=== PATIENT | female | born 1985 | race Caucasian/White ===

== ENCOUNTER 2020-03-21 14:58 | Outpatient (RCR) | payer OTHER, SELFPAY ==
--- NOTE | ~2020-03-21 | US_ITS ---
EXAMINATION: US OB limited w BPP DATE: 03/21/2020 16:46 INDICATION: Assess amniotic fluid index during third trimester of . TECHNIQUE: Real-time pelvic ultrasound was performed. The interpreting radiologist was not present fo r the study. COMPARISON: None. FINDINGS: There is a single living fetus in vertex presentation. The placenta is posterior. heart rate i s 161 beats per minute (bpm). Normal amniotic fluid index of 9.4 cm (5th%-95%: 7.1-21.4 cm at 40 week s estimated gestational age) Biophysical profile performed by the technologist: breathing (30 sec sustained breathing in 30 minutes): 2 out of 2 movement (3 gross body movements in 30 minutes): 2 out of 2 tone (one episode of duerxvy-dfxfsrlzo-spxdejb limb movement): 2 out of 2 Amniotic fluid pocket (2 cm): 2 out of 2 Total score: 8 out of 8 IMPRESSION: 1. Single living fetus in vertex presentation with heart rate of 161 bpm. 2. Biophysical profile 8 out of 8. 3. Normal amniotic fluid index of 9.4 cm. Reviewed, dictated and finalized at location B.
[2020-03-21 17:11] VITALS: BP 126/64; PULSE 93
== END 2020-03-28 08:05 | disposition home or self-care (01) ==
LOC: ANHOBOP 14:58
PROVIDERS: Visit Provider Obstetrics & Gynecology
DX: O48.0 Post-term pregnancy (principal); Z3A.40 40 weeks gestation of pregnancy
CPT/HCPCS: 59025; 76815; 76819

== ENCOUNTER 2020-03-22 02:29 | Inpatient (IN) | payer OTHER, SELFPAY ==
[2020-03-22] VITALS (32 sets, daily range): BP systolic 112–164; BP diastolic 49–133; PULSE 62–113; RESP 16–18; TEMP 36.9–37.4; O2SAT 96–100; BMI 40.3
[2020-03-22] MEDS: LACTATED RINGERS 1,000 ML 125 ML IV CONT ×2 (03:03→03:54)
[2020-03-22 03:11] LABS: Basophils Percent Auto 0.1 % (0.2-1.2); Eosinophils Absolute Auto 0.1 K/mm3 (0-0.3); Eosinophils Percent Auto 0.9 % (0-4.4); Hematocrit 35.7 % (37.0-47.0); Hemoglobin 12.3 g/dL (12.0-15.0); Immature Granulocyte Absolute 0.04 K/mm3 (0.00-0.031); Immature Granulocyte Percent A 0.5 % (0-0.5); Lymphocytes Absolute Auto 2.08 K/mm3 (0.9-3.2); Lymphocytes Percent Auto 23.7 % (18.3-44.2); Mean Corpuscular HGB Conc 34.5 g/dl (32-36); Mean Corpuscular Hemoglobin 30.9 pg (26-34); Mean Corpuscular Volume 89.7 fl (80-100); Monocytes Absolute Auto 0.7 K/mm3 (0.1-0.6); Monocytes Percent Auto 7.4 % (2.6-8.5); Neutrophils Absolute Auto 5.9 K/mm3 (1.3-6.7); Neutrophils Percent Auto 67.4 % (45.5-73.1); Platelet Count Result 200 k/mm3 (150-375); Red Blood Count 3.98 M/mm3 (4.2-5.4); Red Cell Distribution Width 13.8 % (11.5-14.5); White Blood Count 8.8 K/mm3 (4.5-10.0)
--- NOTE | 2020-03-22 03:15 | LDADM ---
This patient, Rosalee Valladares, was admitted to Labor/Delivery/Recovery 108 on 03/22/20 at 02:29. Plans for labor, pain management and were discussed with patient. Patient/family oriented to hospital policies and general routines including ID bracelet, bed and alarms, visiting hours, pain management, procedures, bathroom and other care routines, personal items, smoking policy, room service/diet and guest tray routines, security routines, and visiting hours. Patient/Family are encouraged to report perceived risks to care and to ask questions if they do not understand what they are told or what they should do. See OBIX for further documentation.
--- NOTE | 2020-03-22 03:33 | P.PNAN_ITS ---
Anes - Initial Pre Proc Eval Procedure: labor epidural Date/Time: 03/22/20 03:33 Surgeon: Shon Ritchie MD Pre Op Diagnosis: labor pain Pre Op Diagnosis: Contractions Patient Data Age: 35 Gender: F Height: Weight: Last Vital Signs Temp 37.1 C 03/22/20 02:49 Pulse 75 03/22/20 03:31 BP 119/75 03/22/20 03:31 Pulse Ox 99 03/22/20 03:28 Allergies Allergy/AdvReac Type Severity Reaction Status Date / Time No Known Allergies Allergy Verified 02/20/20 12:33 Home Medications Medication Instructions Recorded Confirmed Type PNV cmb#95-ferrous fumarate-FA 1 tablet PO DAILY 02/20/20 03/21/20 History [] famotidine [Pepcid] 20 mg PO HS 02/20/20 03/21/20 History calcium carbonate [Tums] 600 mg PO TID PRN 03/21/20 03/21/20 History Laboratory Tests 03/22/20 03/22/20 03:05 03:05 WBC 8.8 K/mm3 K/mm3 (4.5-10.0) RBC 3.98 M/mm3 L M/mm3 (4.2-5.4) Hgb 12.3 g/dL g/dL (12.0-15.0) Hct 35.7 % L % (37.0-47.0) MCV 89.7 fl fl (80-100) MCH 30.9 pg pg (26-34) MCHC 34.5 g/dl g/dl (32-36) RDW 13.8 % % (11.5-14.5) Plt Count 200 k/mm3 k/mm3 (150-375) MPV 12.0 fl H fl (7.4-10.4) Immature Gran % (Auto) 0.5 % % (0-0.5) Neut % (Auto) 67.4 % % (45.5-73.1) Lymph % (Auto) 23.7 % % (18.3-44.2) [place] % (Auto) 7.4 % % (2.6-8.5) Eos % (Auto) 0.9 % % (0-4.4) Baso % (Auto) 0.1 % L % (0.2-1.2) Lymph # (Auto) 2.08 K/mm3 K/mm3 (0.9-3.2) [place] # (Auto) 0.7 K/mm3 H K/mm3 (0.1-0.6) Eos # (Auto) 0.1 K/mm3 K/mm3 (0-0.3) Baso # (Auto) 0.0 K/mm3 K/mm3 (0.0-0.1) Abs Immat Gran (auto) 0.04 K/mm3 H K/mm3 (0.00-0.031) Absolute Neuts (auto) 5.9 K/mm3 K/mm3 (1.3-6.7) Absolute Nucleated RBC 0.0 K/mm3 K/mm3 (0.0-0.012) Nucleated RBC % 0.0 % % (0.0-0.2) RPR Pending Patient hx anesthesia problems: none Family hx anesthesia problems: none PMFSH Past Medical History Medical History (Updated 03/22/20 @ 03:33 by Heron Mejia DO) GERD (gastroesophageal reflux disease) Family History Family History Grandparent Cancer Mother Hypertension Social History Social History Substance use: never Spiritual care concerns: No Anes - Eval Final PreProcedure Day of Procedure 03/22/20 03:33 Patient weight: morbidly obese ASA classification: III Anesthesia type and monitoring: regional epidural Informed Consent: The patient's anesthetic plan and its attendant risks and benefits were discussed with the patient/family/POA. Questions were solicited and answers provided to the satisfaction of the patient/family/POA.
[2020-03-22] MEDS: OXYTOCIN 30 UNITS/NS 500 ML 30 UNITS/500 ML BAG 999 UNITS IV CONT (03:54)
--- NOTE | 2020-03-22 04:15 | WPDOBADMIT ---
Obstetrics - Admit Note Admission Note: record reviewed. Additions to the history and/or subsequent changes in the physical findings follow. 35 y/o at 40 1/7 weeks here with contractions. Labor was diagnosed. Epidural was placed. SROM with clear fluid. Completely dilated rapidly thereafter. GBS neg. AVSS NST reactive TOCO: contractions every 2-3 min ABD soft, nontender, gravid, vertex EXT nontender Cervix C/+1 A: IUP at term with labor. P: Begin pushing..
--- NOTE | 2020-03-22 04:17 | PM.OBPRVD ---
OB - Delivery Note Procedure Delivery date: 03/22/20 Procedure: Delivery monitor: external FHT and external uterine Route of delivery: Laceration description: Perineal - 1st Degree Delivery repair: vicryl (3-0) Specimen: Yes (cord blood) Estimated blood loss (mL): 165 Anesthesia type: Epidural Disposition: PACU Complications: None Narrative: 35 y/o at 40 1/7 weeks gestation who presented to the hospital with complaint of contractions. Labor was diagnosed. She received an epidural for pain control. She had SROM of clear fluid. Her labor progressed and her cervix dilated completely. She pushed with good effort and delivered the 's head to the perineum. A loose nuchal cord was splinted and the body delivered. The nose and mouth were bulb suctioned. After a delay, the cord was clamped and cut. The infant was handed off the field. Cord blood was collected. The placenta delivered spontaneously and was grossly normal in appearance. The usual 3 vessel cord was noted. A first degree midline perineal laceration was sustained. This was reapproximated using 3 0 Vicryl in the usual layered fashion. Excellent hemostasis resulted as did excellent reapproximation of the normal anatomy. Needle and instrument counts were correct. The patient was taken to recovery room in stable condition. The went to the nursery in stable condition. I was present and scrubbed for the entire delivery. [place] Baby Date of : 03/22/20 Time of : 03:55 Weeks of gestation at delivery: 40 Infant gender: Male Weight (pounds): 8 Weight (ounces): 5 presentation: vertex position: Right Occiput Anterior Placenta delivery description: Spontaneous and Normal Configuration cord vessel description: 3 Vessels and Nuchal Cord score one minute: 9 score five minutes: 9
--- NOTE | 2020-03-22 04:19 | P.DS_ITS ---
DS: Admitting Diagnosis Admitting Diagnosis Admitting Diagnosis: Contractions DS: Discharge Diagnosis Discharge Diagnosis (1) (normal spontaneous vaginal delivery): Code(s): O80 - Encounter for full-term uncomplicated delivery Status: Acute OB - DS: Summary OB Procedures : None OB Procedures Intrapartum: Spontaneous Vag Delivery OB Procedures: : None DS: Data Data Completed and Pending Labs on day of discharge: Labs from last 24 hours 03/22/20 03/22/20 03:05 03:05 WBC 8.8 RBC 3.98 L Hgb 12.3 Hct 35.7 L MCV 89.7 MCH 30.9 MCHC 34.5 RDW 13.8 Plt Count 200 MPV 12.0 H Immature Gran % (Auto) 0.5 Neut % (Auto) 67.4 Lymph % (Auto) 23.7 [place] % (Auto) 7.4 Eos % (Auto) 0.9 Baso % (Auto) 0.1 L Lymph # (Auto) 2.08 [place] # (Auto) 0.7 H Eos # (Auto) 0.1 Baso # (Auto) 0.0 Abs Immat Gran (auto) 0.04 H Absolute Neuts (auto) 5.9 Absolute Nucleated RBC 0.0 Nucleated RBC % 0.0 RPR Pending Discharge Plan Discharge Attending physician on discharge: Shon Ritchie Consulting providers: Joao Chung Discharging Clinician: Shon Ritchie Patient Disposition: Home, Self-Care Activity: pelvic rest Diet: regular Discharge Instructions: Call or return if temperature above 100.4? F, increased abdominal pain, increased vaginal bleeding or any new problems. Stand Alone Forms: General Discharge Information Follow-up/Referrals: Shon Ritchie MD [Physician] - 6 Weeks Discharge Medications: New ibuprofen 600 mg tablet 600 mg PO Q6H PRN (Reason: cramps) Qty: 30 RF: 0 No Action famotidine [Pepcid] 20 mg Tablet 20 mg PO HS RF: 0 PNV cmb#95-ferrous fumarate-FA [] 28 mg iron- 800 mcg Tablet 1 tablet PO DAILY RF: 0 calcium carbonate [Tums] 300 mg (750 mg) Tablet,Chewable 600 mg PO TID PRN (Reason: Heartburn) RF: 0 Date of admission: 03/22/20 02:29 Primary Care Provider: Parmjit,Mikey Matute Admitting Provider: Shon Ritchie Attending physician on admission: Shon Ritchie
[2020-03-22] MEDS: OXYTOCIN 30 UNITS/NS 500 ML 30 UNITS/500 ML BAG 125 UNITS IV CONT (04:33)
[2020-03-22] MEDS: WITCH HAZEL 40 PADS 1 PAD TOPICAL (06:26)
[2020-03-22] MEDS: IBUPROFEN 600 MG TABLET PO ×3 (06:26→19:29)
[2020-03-22] MEDS: BENZOCAINE 20% AER SPR (*SP) 56 GM CAN 1 SPRAY TOPICAL (06:26)
--- NOTE | 2020-03-22 08:29 | PC.NURSE ---
Patient transferred to post room #285 via wheelchair. Support person present. Oriented to unit, room, information board, rooming in, admission packet and security measures. Patient verbalizes understanding.
[2020-03-22 11:20] LABS: Rapid Plasma Reagin Non-Reactive (NonReactive)
--- NOTE | 2020-03-22 14:30 | PC.NURSE ---
Mother called out for assist with feeding . Consulted with patient, mother reports infant is sleepy and is having difficulties with latching. is inconsistent with eagerness and latching, some feedings infant will be easily awoken and latch other mother struggles to get to latch. Infant has been spitty, discussed infant may be spitty for a few days with amniotic fluid which should resolve. Mother reports breastfeed first two children without issue. Reviewed infant feeding cues, frequencies, duration of feedings, feeding elimination flow sheet, and signs of adequate intake. Demonstrated stimulation techniques to wake for feeding. Assisted with infant to breast. Reviewed positioning/alignment in cross cradle, holding breast in U hold and guided asymmetrical latch on. Discussed the rational for each. Infant was able to latch correctly. Infant nursed eagerly, with steady draws and frequent swallowing noted. Reviewed signs of a correct latch, effective nursing and suck swallow ratio. was able to maintain latch without discomfort to mother. Advised to stimulate while feeding to keep infant awake and effectively feeding for increased intake and to assist with maintaining deep latch. Demonstrated how to adjust latch more deeply while feeding. Instructed mother to call out for RN assistance if she is unable to latch infant for feeding or she has discomfort with nursing. Instructed feeding should be initiated three hours from start of last feeding or if feeding cues are noted before. Mother voiced understanding of information shared. Reviewed transition to breast milk, signs of adequate intake, and engorgement/relief. Instructed to call ICP if intake/output less than required. Reviewed regular medications mother is taking. Information provided per Alexandra. Reviewed community resources on the [facility] website and in the Mom/Baby guide. Information on outpatient services provided. Mother has no further questions at this time.
[2020-03-23] MEDS: IBUPROFEN 600 MG TABLET PO ×2 (02:21→08:16)
[2020-03-23 04:50] LABS: Hematocrit 30.9 % (37.0-47.0); Hemoglobin 10.3 g/dL (12.0-15.0)
[2020-03-23 08:00] VITALS: BP 121/75; PULSE 60; RESP 18; TEMP 36.4; O2SAT 100
--- NOTE | 2020-03-23 08:13 | WPDANLDPN2 ---
Anes-Prog Note L&D Date/Time: 03/23/20 08:13 Comfortable throughout: labor and delivery Neuraxial method: epidural Epidural/Spinal procedure site: clean & non-tender Neuro status: Neuro function grossly intact. Cardiovascular status: normal Respiratory status: normal Airway patency: baseline Mental status: baseline Post-Op hydration status: normal Vital Signs: Last Vital Signs Temp 36.9 C 03/22/20 20:00 Pulse 65 03/22/20 20:00 Resp 18 03/22/20 20:00 BP 116/75 03/22/20 20:00 Pulse Ox 98 03/22/20 20:00 Pain score (VAS): 2 Patient feedback: Patient satisfied with anesthetic care.
[2020-03-23] MEDS: MULTIVIT/MIN/PREN/FOL AC/IRON TABLET 1 TAB PO (08:16)
[2020-03-23] MEDS: TETANUS,DIPHTHERIA,AC PERTUSSIS ADULT (0.5 ML) BOOSTRIX IM (08:17)
--- NOTE | 2020-03-23 11:41 | PM.OBPNVD ---
OB - PN: Subj Subjective Date/time seen: 03/23/20 11:41 Narrative: Pain OK. Would like circumcision for son. Would like to go home. OB - PN: Obj Data Labs CBC & Chem 7: 03/23/20 04:33 Labs: Laboratory Results - last 24 hr 03/23/20 04:33 Hgb 10.3 L Hct 30.9 L OB - PN A/P Plan Comments: A: PPD#1, doing well. P: Home to f/u 6 weeks. Reviewed circ. Exam Psych: Other: AVSS ABD soft, nontender, fundus firm EXT nontender
--- NOTE | 2020-03-23 15:11 | PC.NURSE ---
Patient viewed the discharge video Mother & Baby Care, The First Two Weeks . Patient was given the opportunity and encouraged to ask questions. Patient verbalized understanding of information shared and has been given the mother/baby guide for home reference.
[2020-03-25 10:23] VITALS: BP 123/84; PULSE 77; RESP 20; TEMP 37; O2SAT 100
== END 2020-03-23 14:30 | disposition home or self-care (01) | DRG 807 ==
LOC: ANHLDR 04:20 → ANHOB2 07:20
PROVIDERS: Admitting Provider Obstetrics & Gynecology; PCP Internal Medicine; Visit Provider Obstetrics & Gynecology
DX: O62.3 Precipitate labor (principal); Z37.0 Single live birth; O99.214 Obesity complicating childbirth; E66.01 Morbid (severe) obesity due to excess calories; O70.0 First degree perineal laceration during delivery; O69.81X0 Labor and delivery complicated by cord around neck, without compression, not applicable or unspecified; Z3A.40 40 weeks gestation of pregnancy
CPT/HCPCS: 36415; 85014; 85018; 85025; 86592; 86850; 86900; 86901; 90715; A9270; J2590; J2795; J7120